=== PATIENT | male | born 1995 | race Caucasian/White ===

== ENCOUNTER 2022-08-08 17:17 | Emergency (ER) | payer SELFPAY ==
[~2022-08-08] VITALS: Ht 170.2 cm; Wt 61.0 kg
[2022-08-08] MEDS ORDERED: DIPHENHYDRAMINE 50MG/ML VIAL IM STA (17:26)
[2022-08-08] MEDS ORDERED: HALOPERIDOL LACTATE 5MG/ML VIAL IM STA (17:26)
[2022-08-08] MEDS ORDERED: LORAZEPAM 2MG/ML CPJ IM STA (17:26)
[2022-08-08 18:56] LABS: BASOPHILS % 0.6 % (0.0-2.0); EOSINOPHILS % 1.8 % (0.0-5.0); HEMATOCRIT. 44.1 % (42.0-52.0); HEMOGLOBIN. 15.1 g/dL (14.0-18.0); LYMPHOCYTES % 14.6 % (20.0-50.0); MEAN CORPUSCULAR HEMOGLOBIN 31.6 pg (28.0-32.0); MEAN CORPUSCULAR VOLUME 92.1 fL (80.0-94.0); MEAN PLATELET VOLUME 7.5 fl (7.4-10.4); MONOCYTES % 7.6 % (2.0-8.0); NEUTROPHILS % 75.4 % (40.0-76.0); PLATELET 280 x1000/uL (130-400); RED BLOOD CELL COUNT 4.79 mill/uL (4.7-6.1); RED CELL DISTRIBUTION WIDTH 12.7 % (11.6-14.6)
[2022-08-08 19:00] LABS: CHLORIDE 105 mEq/L (98-107)
[2022-08-08 19:06] LABS: ETHANOL BLOOD < 10 mg/dL
[2022-08-08 22:02] LABS: CLARITY URINE CLEAR (CLEAR); COLOR URINE YELLOW (YELLOW); KETONES URINE TRACE (NEGATIVE); LEUKOCYTE ESTERASE URINE NEGATIVE (NEGATIVE); NITRITE URINE NEGATIVE (NEGATIVE); OCCULT BLOOD URINE NEGATIVE (NEGATIVE); PH URINE 6.5 (4.5-8.0); PROTEIN URINE TRACE (NEGATIVE); SPECIFIC GRAVITY URINE 1.021 (1.005-1.030); UROBILINOGEN URINE 0.2 E.U./dL (0.2-1.0)
[2022-08-08 22:14] LABS: *AMPHETAMINES SCREEN URINE PRESUMTIVE POSITIVE (NEGATIVE); *BARBITURATES SCREEN URINE NEGATIVE (NEGATIVE); *BENZODIAZEPINES SCREEN URINE NEGATIVE (NEGATIVE); *COCAINE SCREEN URINE NEGATIVE (NEGATIVE); CANNABINOID URINE SCREEN PRESUMTIVE POSITIVE (NEGATIVE); METHADONE URINE SCREEN NEGATIVE (NEGATIVE); OPIATES URINE SCREEN NEGATIVE (NEGATIVE); PHENCYCLIDINE URINE SCREEN NEGATIVE (NEGATIVE)
[2022-08-09] MEDS ORDERED: LORAZEPAM 2MG/ML CPJ IM NR (09:15)
[2022-08-09] MEDS ORDERED: DIPHENHYDRAMINE 50MG/ML VIAL IM NR ×2 (09:15→12:30)
[2022-08-09] MEDS ORDERED: HALOPERIDOL LACTATE 5MG/ML VIAL IM NR (09:15)
[2022-08-09] MEDS: OLANZAPINE 5MG TABLET ODT PO SCH ×2 (12:25→17:00)
[2022-08-09] MEDS: DIVALPROEX SODIUM 125MG SPRINKLE CAPSULE PO SCH ×2 (16:15→22:00)
[2022-08-10 01:24] VITALS: BP 130/76
== END 2022-08-10 05:20 | disposition home or self-care (01) ==
LOC: EDBD 17:17 → ER 17:17
DX: R45.1 Restlessness and agitation (principal); R41.82 Altered mental status, unspecified; Z20.822 Contact with and (suspected) exposure to COVID-19
CPT/HCPCS: 36415; 70450; 80053; 80305; 80307; 80320; 80329; 81003; 84443; 85025; 87426; 93005; 96372; 99291; C9803; J1200; J1630; J2060; Z7610; G0480